=== PATIENT | female | born 1960 | race Caucasian/White ===

== ENCOUNTER 2023-10-16 12:51 | Outpatient (CLI) | payer OTHER | END 2023-10-16 12:57 | disposition home or self-care (01) | LOC: MAMO-SONO 12:51 | PROVIDERS: ATTEND Obstetrics & Gynecology Maternal & Fetal Medicine | DX: N63.0 Unspecified lump in unspecified breast (principal); Z12.31 Encounter for screening mammogram for malignant neoplasm of breast; N64.4 Mastodynia; N60.11 Diffuse cystic mastopathy of right breast ==